=== PATIENT | female | born 1965 | race Hispanic/Latino ===

== ENCOUNTER 2021-02-06 17:54 | Emergency (ER) | payer OTHER ==
--- OUTSIDE RECORDS SUMMARY | 2021-02-06 17:56 | XMS REPORT | Continuity of Care Document ---
:1965 Author Organization [facility] t Address [address] [place] [address] Care Team Providers Name Role Phone Unavailable Unavailable Unavailable Problems This patient has no known problems. Allergies, Adverse Reactions, Alerts Allergy Allergy Status Severity Reaction(s) Onset Inactive Treating Comm ents Source Name Type Date Date Clinician Trilipix Adverse Active Info Not [facility] Reaction Available [facility] Zocor Adverse Active Info Not [facility] Reaction Available [facility] Lipitor Adverse Active Info Not [facility] Reaction Available [facility] Cozaar Adverse Active Info Not [facility] Reaction Available [facility] Amoxicil Adverse Active anaphylaxis [facility] chichi Reaction [facility] Vytorin Adverse Active Info Not [facility] Reaction Available [facility] Gemfibro Adverse Active Info Not [facility] zil Reaction Available [facility] Medications Ordered Filled Start Stop Current Ordering Indication Dosage Frequency Signature Comments Components Source Medication Medication Date Date Medication? Clinician (SIG) Name Name Ketoconazol Ketoconazol 2019-0 2020- No Na Petersen [address] [facility] e 04-04 [facility]atio [facility] n to [facility] 00 :00 affected l [facility] Triamcinolo Triamcinolo 0 Yes Na Petersen [address] [facility] ne ne 05-27 applicatio [facility] - Acetonide Acetonide 00:00: n to Mem oria 00 affected l area [facility] ent Clinics Pantoprazol Pantoprazol Yes Na Petersen [address] [facility] e Sodium e Sodium 02-24 [facility]: [facility] Clinics Vascepa Vascepa 2019- No Na Petersen [address] [facility] 5-29 12- with meals [facility]00 [facility] :00 l Out[facility] ent Clinics Azithromyci Azithromyci Yes Na Petersen [address] [facility] n n 2-28 on the [facility] - 00:00: first day, Memoria 00 then 1 l tablet Outpati daily for ent 4 days Clinics EpiPen EpiPen Yes Na Petersen as [facility] 2-Marcos 2-Marcos 05-28 directed [facility] Clin[facility] Cetirizine Cetirizine Yes Na Petersen [address] [facility] HCl HCl 05-28 [facility] 00[facility] Clinics Flonase Flonase Yes Na Petersen [address] [facility] 05-28 each [facility] 00:[facility]: nostril [facility] 00 l Outpati ent Clinics Fluconazole Fluconazole Yes Na Petersen [address] [facility] today and [facility] - may repeat Memoria one tab in l 1 week if Outpati no ent improvemen Clinics t Lotrisone Lotrisone Yes Na Petersen [address] applic[facility] n to [facility] affected l area Outpati ent Clinics Restasis Restasis Yes Na Petersen [address] [facility] affected [facility] eye l Outpati ent Clin[facility] Ventolin Ventolin Yes Na Petersen [address] [facility] HFA HFA needed [facility] Fish Oil Fish Oil Yes Na Petersen [address] [facility] Synthroid Synthroid Yes Na Petersen [address] [facility] on an [facility] - empty [facility]oria stomach in l the Outpati morning ent Clinics Levothyroxi Levothyroxi Yes Na Petersen [address] [facility] ne Sodium ne Sodium on an Luke s - empty Memoria stomach in l the Outpati morning ent Clinics Zyrtec Zyrtec Yes Na Petersen [address] [facility] Allergy Allergy [facility] Zestoretic Zestoretic Yes Na Petersen TAKE ONE [facility] TABLET BY [facility] - MOUTH [facility] DAILY l Outpati ent Clinics Metformin Metformin Yes Na Petersen [address] [facility] HCl HCl with meals [facility] Accu-Chek Accu-Chek Yes Na Petersen TEST BLOOD [facility] [employer] [place] - ONCE DAILY [facility] l Outpati ent Clinics Synthroid Synthroid Yes Na Petersen TAKE ONE [facility] TABLET BY [facility] - MOUTH [facility] EVERY l MORNING ON Outpati EMPTY ent STOMACH Clinics Procedures This patient has no known procedures. Encounters Start End Encounter Admission Attending Care Care Encounter Source Date/Time Date/Time Type Type Clinicians Facility Department ID 2021-01-25 2021-01-25 Outpatient [facility] [id number] 2020-12-13 2020-12-13 Outpatient [facility] [id number] [facility] 13:41:00 13:41:00 2020-10-24 2020-10-24 Outpatient [facility] [id number] [facility] 2020-07-14 2020-07-14 Outpatient [facility] [id number] [facility] 2020-06-14 2020-06-14 Outpatient [facility] [id number] [facility] 13:52:00 13:52:00 2020-04-04 2020-04-04 [facility] [id number] [facility] 13:20:00 13:20:00 [facility] l Medicine Outpati ent Clinics 2019-12-29 2019-12-29 [facility] [id number] [facility] 10:40:00 10:40:00 [facility] l Medicine Outpati ent Clinics 2019-10-20 2019-10-20 Outpatient [facility] [id number] [facility] 12:42:00 12:42:00 2019-08-19 2019-08-19 [facility] [id number] [address] 13:20:00 13:20:00 [facility] [employer] [facility] [facility] - [facility] Medicine Medicine Outpati ent Clinics 2019-05-27 2019-05-27 [facility] [id number] [facility] 11:00:00 11:00:00 t [employer] [employer] [facility] - Drive [facility] l Medicine Outpati ent Clinics 2019-04-21 2019-04-21 Outpatient [facility] [id number] [facility] 11:29:00 11:29:00 2019-03-11 2019-03-11 [facility] [id number] [facility] 10:09:00 10:09:00 t [employer] [facility] - [facility] Medicine Outpati ent Clinics 2019-02-24 2019-02-24 [facility] [id number] [facility] 11:20:00 11:20:00 t [employer] [facility] Medicine Outpati ent Clinics 2018-11-26 2018-11-26 [facility] [id number] [facility] 14:00:00 14:00:00 t [employer] [facility] Medicine Outpati ent Clinics 2018-08-27 2018-08-27 [facility] [id number] 10:15:00 10:15:00 [employer] [facility] l Medicine Outpati ent Clinics 2018-05-28 2018-05-28 [facility] [id number] [facility] 10:45:00 10:45:00 t [employer] [facility] Medicine Outpati ent Clinics 2018-02-26 2018-02-26 [facility] [id number] 14:00:00 14:00:00 [address] [employer] [facility] Medicine Outpati ent Clinics Results This patient has no known results.
--- NOTE | 2021-02-06 19:55 | EDPHYS ---
Physician Documentation [facility] Name: Caity Dee Age: 55 yrs Sex: Female : 1965 Arrival Date: 02/06/2021 Time: 18:01 Bed 18 Private MD: ED Physician Gian Jones HPI: 02/06 20:03 This 55 yrs old Female presents to ER via Wheelchair with complaints of Toe kb Injury. 20:04 The patient presents with an injury, pain, swelling, tenderness. The complaints affect kb the right foot. Context: The problem was sustained at a store, resulted from hit toe on shopping cart, the patient can fully bear weight, the patient is able to ambulate. Onset: The symptoms/episode began/occurred today. Modifying factors: The symptoms are alleviated by nothing, the symptoms are aggravated by weight bearing. Associated signs and symptoms: Pertinent positives: swelling, Pertinent negatives: calf tenderness, fever, nausea, numbness, rash, tingling, vomiting, warmth, weakness. Severity of symptoms: At their worst the symptoms were moderate, in the emergency department the symptoms are unchanged. The patient has not experienced similar symptoms in the past. The patient has not recently seen a physician. Historical: - Allergies: 18:17 Levofloxacin (Anaphylaxis); tw2 18:17 PENICILLINS (Anaphylaxis); tw2 18:17 contrast dye; tw2 18:17 seasonal allergies; tw2 18:18 Levaquin (Anaphylaxis); tw2 - Home Meds: 18:17 metformin 500 mg Oral tab 1 tab 2 times per day [Active]; Vascepa 1 gram oral cap 2 tw2 caps 2 times per day [Active]; lisinopril-hydrochlorothiazide 20-12.5 mg oral tab 1 tab once daily [Active]; Synthroid 100 mcg oral tab 2 tabs once daily [Active]; - PMHx: 18:17 Hypertension; Hyperlipidemia; tw2 - PSHx: 18:17 Thyroidectomy; Hysterectomy; tw2 - Immunization history:: Adult Immunizations. - Social history:: Smoking status: . ROS: 20:01 Constitutional: Negative for fever, chills, and weight loss. kb 20:01 Skin: Positive for erythema, swelling, of the right fifth toe. 20:01 MS/extremity: Positive for injury or acute deformity, decreased range of motion, pain, kb swelling, tenderness, of the right fifth toe. 20:01 All other systems are negative. Exam: 20:01 Constitutional: This is a well developed, well nourished patient who is awake, alert, kb and in no acute distress. Head/Face: Normocephalic, atraumatic. ENT: Moist Mucous membranes Respiratory: Respirations even and unlabored. No increased work of breathing, no retractions or nasal flaring. Skin: Warm, dry with normal turgor. Normal color. Neuro: Awake and alert, GCS 15, oriented to person, place, time, and situation. Moves all extremities. Normal gait. Psych: Awake, alert, with orientation to person, place and time. Behavior, mood, and affect are within normal limits. 20:01 Musculoskeletal/extremity: Extremities: grossly normal except: noted in the right fifth toe: decreased ROM, erythema, pain, swelling, tenderness, ROM: limited active range of motion due to pain, in the right fifth toe, Circulation is intact in all extremities. Sensation intact. Weight bearing: able to fully bear weight. Vital Signs: 18:14 BP 139 / 82; Pulse 78; Resp 17; Temp 98(TE); Pulse Ox 100% on R/A; Weight 73.48 kg (R); tw2 Height 5 ft. 3 in. (160.02 cm); Pain 9/10; 20:34 BP 127 / 74; Pulse 74; Resp 16; Pulse Ox 98% on R/A; jm8 18:14 Body Mass Index 28.70 (73.48 kg, 160.02 cm) tw2 MDM: 18:23 Patient medically screened. kb 19:26 Data reviewed: vital signs, nurses notes. Data interpreted: Pulse oximetry: on room air kb is 100 %. Interpretation: normal. Counseling: I had a detailed discussion with the patient and/or guardian regarding: the historical points, exam findings, and any diagnostic results supporting the discharge/admit diagnosis, radiology results, the need for outpatient follow up, a orthopedic surgeon, to return to the emergency department if symptoms worsen or persist or if there are any questions or concerns that arise at home. 02/06 18:24 Order name: Foot Right 3 View XRAY kb 02/06 19:55 Order [facility]: [facility] Order: aly tape; Complete Time: 20:13 kb 02/06 20:00 Order name: Post-op shoe; Complete Time: 20:13 kb Administered Medications: No medications were administered Disposition: 02/07 19:06 Co-signature as Attending Physician, Gian Jones MD. rn Disposition: 02/06/21 19:54 Discharged to Home. Impression: Nondisplaced fracture of distal phalanx of right lesser toe(s). - Condition is Stable. - Discharge Instructions: Toe Fracture, [id number]. - Prescriptions for Diclofenac Sodium 75 mg Oral Tablet, Delayed Release (E.C.) - take 1 tablet by ORAL route 2 times per day As needed; 30 tablet. - Medication Reconciliation Form, Thank You Letter, Antibiotic Education, Prescription Opioid Use form. - Follow up: Emergency Department; When: As needed; Reason: Worsening of condition. Follow up: Private Physician; When: 2 - 3 days; Reason: Recheck today's complaints, Continuance of care, Re-evaluation by your physician. Signatures: Dispatcher [employer] EDWY Jennifer Duenas, BAR EXAMINER-C BAR EXAMINER-Ckb Gian Jones MD MD rn Wise, Tara, RN RN tw2 Hitesh Garg RN RN jm8 Corrections: (The following items were deleted from the chart) 02/06 18:18 18:17 Allergies: Levaquin; tw2 tw2 20:37 19:54 02/06/2021 19:54 Discharged to Home. Impression: Nondisplaced fracture of distal jm8 phalanx of right lesser toe(s). Condition is Stable. Forms are Medication Reconciliation Form, Thank You Letter, Antibiotic Education, Prescription Opioid Use. Follow up: Emergency Department; When: As needed; Reason: Worsening of condition. Follow up: Private Physician; When: 2 - 3 days; Reason: Recheck today's complaints, Continuance of care, Re-evaluation by your physician. kb
--- NOTE | 2021-02-06 19:55 | ER ---
Nurse's Notes [facility] Name: Caity Dee Age: 55 yrs Sex: Female : 1965 Arrival Date: 02/06/2021 Time: 18:01 Bed 18 Private MD: Diagnosis: Nondisplaced fracture of distal phalanx of right lesser toe(s) Presentation: 02/06 18:14 Chief complaint: Patient states: around noon today i hit the shopping cart wheel with tw2 my little toe and the pain is getting worse. i cant put any weight on it. Coronavirus screen: At this time, the client does not indicate any symptoms associated with coronavirus-19. Ebola Screen: Patient denies travel to an Ebola-affected area in the 21 days before illness onset. Initial Sepsis Screen: Does the patient meet any 2 criteria? No. Patient's initial sepsis screen is negative. Does the patient have a suspected source of infection? No. Patient's initial sepsis screen is negative. Risk Assessment: Do you want to hurt yourself or someone else? Patient reports no desire to harm self or others. Onset of symptoms was February 06, 2021. 18:14 Method Of Arrival: Wheelchair tw2 18:14 Acuity: ASHLEY 4 tw2 Triage Assessment: 18:18 General: Appears in no apparent distress. well groomed, Behavior is calm, cooperative, tw2 appropriate for age. Pain: Complains of pain in right fifth toe and Right fifth toenail. Historical: - Allergies: 18:17 Levofloxacin (Anaphylaxis); tw2 18:17 PENICILLINS (Anaphylaxis); tw2 18:17 contrast dye; tw2 18:17 seasonal allergies; tw2 18:18 Levaquin (Anaphylaxis); tw2 - Home Meds: 18:17 metformin 500 mg Oral tab 1 tab 2 times per day [Active]; Vascepa 1 gram oral cap 2 tw2 caps 2 times per day [Active]; lisinopril-hydrochlorothiazide 20-12.5 mg oral tab 1 tab once daily [Active]; Synthroid 100 mcg oral tab 2 tabs once daily [Active]; - PMHx: 18:17 Hypertension; Hyperlipidemia; tw2 - PSHx: 18:17 Thyroidectomy; Hysterectomy; tw2 - Immunization history:: Adult Immunizations. - Social history:: Smoking status: . Screenin:41 Abuse screen: Denies threats or abuse. Denies injuries from another. Nutritional tr6 screening: No deficits noted. Tuberculosis screening: No symptoms or risk factors identified. Fall Risk None identified. Assessment: 18:30 General: Appears in no apparent distress. Behavior is calm, cooperative, appropriate tr6 for age. Pain: Complains of pain in right pinky toe. Neuro: No deficits noted. Cardiovascular: No deficits noted. Respiratory: No deficits noted. GI: No deficits noted. : No deficits noted. EENT: No deficits noted. Derm: No deficits noted. Musculoskeletal: No deficits noted. 18:39 Reassessment: bedside xray. tr6 Vital Signs: 18:14 BP 139 / 82; Pulse 78; Resp 17; Temp 98(TE); Pulse Ox 100% on R/A; Weight 73.48 kg (R); tw2 Height 5 ft. 3 in. (160.02 cm); Pain 9/10; 20:34 BP 127 / 74; Pulse 74; Resp 16; Pulse Ox 98% on R/A; jm8 18:14 Body Mass Index 28.70 (73.48 kg, 160.02 cm) tw2 ED Course: 18:01 Patient arrived in ED. mr 18:15 Triage completed. tw2 18:18 Arm band placed on. tw2 18:23 Jennifer Duenas FNP-C is [facility]. kb 18:23 Gian Jones MD is Attending Physician. kb 18:29 Cori Noel, ASIA is Primary Nurse. tr6 18:41 Patient has correct armband on for positive identification. Bed in low position. Call tr6 light in reach. Side rails up X 1. 18:41 No provider procedures requiring assistance completed. tr6 19:03 Foot Right 3 View XRAY In Process Unspecified. EDMS 20:36 Patient did not have IV access during this emergency room visit. jm8 Administered Medications: No medications were administered Outcome: 19:54 Discharge ordered by . kb 20:36 Discharged to home ambulatory. jm8 20:36 Condition: good 20:36 Discharge instructions given to patient, family, Instructed on discharge instructions, follow up and referral plans. medication usage, Demonstrated understanding of instructions, follow-up care, medications. 20:37 Patient left the ED. yolande Signatures: Dispatcher [employer] EDIL Henrique, Jennifer, BROOMCORN THRESHER-C BROOMCORN THRESHER-Ckb Jay Nallely mr Kayla Diaz RN RN tw2 Hitesh Garg RN RN jm8 Cori Noel RN RN tr6 Corrections: (The following items were deleted from the chart) 18:18 18:17 Allergies: Levaquin; tw2 tw2
[2021-02-06 20:54] VITALS: TEMP 98
[2021-02-06 20:56] VITALS: BP 127/74; O2SAT 98
--- NOTE | 2021-02-06 20:59 | RAD REPORT ---
EXAM DESCRIPTION: RAD - Foot Right 3 View - 02/06/2021 7:03 pm CLINICAL HISTORY: PAIN, blunt force trauma left fifth toe COMPARISON: No comparisons FINDINGS: No fracture, dislocation or periosteal reaction. No acute bone or joint finding identifia ble. No air or foreign body in the soft tissues. IMPRESSION: Negative right foot examination.
== END 2021-02-06 20:37 | disposition home or self-care (01) ==
LOC: ER 17:54
DX: S92.534A Nondisplaced fracture of distal phalanx of right lesser toe(s), initial encounter for closed fracture (principal); W22.8XXA Striking against or struck by other objects, initial encounter; Y92.512 Supermarket, store or market as the place of occurrence of the external cause; I10 Essential (primary) hypertension; E78.5 Hyperlipidemia, unspecified; Z88.0 Allergy status to penicillin; Z88.1 Allergy status to other antibiotic agents; Z88.3 Allergy status to other anti-infective agents; Z91.041 Radiographic dye allergy status
CPT/HCPCS: 99283